=== PATIENT | female | born 1975 | race Caucasian/White ===

== ENCOUNTER 2018-08-21 16:03 | Emergency (ER) | payer BC ==
--- NOTE | 2018-08-21 16:32 | ER Document Report ---
ED Medical Screen (RME) - General Chief Complaint: Arm Problem Stated Complaint: SWELLING LEFT ARM Time Seen by Provider: 08/21/18 16:29 Mode of Arrival: Ambulatory Information source: Patient TRAVEL OUTSIDE OF THE [place] IN LAST 30 DAYS: No - HPI Patient complains to provider of: L arm swelling Onset: Last week - pt diagnosed with shingles last week and started on valtrex. Has noticed increased swelliing in L arm and hand over the past few days. Went to today and was told it could be blood clot - Related Data Allergies/Adverse Reactions: No Known Allergies Allergy (Verified 08/21/18 16:05) Past Medical History - Immunizations Hx Diphtheria, Pertussis, Tetanus Vaccination: No Physical Exam - Vital signs Vitals: Temp Pulse Resp BP Pulse Ox 98.4 F 69 16 134/62 H 98 08/21/18 16:15 08/21/18 16:15 08/21/18 16:15 08/21/18 16:15 08/21/18 16:15 Course - Vital Signs Vital signs: Temp Pulse Resp BP Pulse Ox 98.4 F 69 16 134/62 H 98 08/21/18 16:15 08/21/18 16:15 08/21/18 16:15 08/21/18 16:15 08/21/18 16:15
[2018-08-21 17:13] LABS: ABSOLUTE BASOPHILS # (AUTO) 0.1 10^3/uL (0.0-0.2); ABSOLUTE EOSINOPHILS # (AUTO) 0.5 10^3/uL (0.0-0.6); ABSOLUTE LYMPHOCYTES (AUTO) 2.6 10^3/uL (0.5-4.7); ABSOLUTE MONOCYTES (AUTO) 0.6 10^3/uL (0.1-1.4); ABSOLUTE NEUT (AUTO) 5.3 10^3/uL (1.7-8.2); BASOPHILS % (AUTO) 0.7 % (0-2); LYMPHOCYTES % (AUTO) 28.7 % (13-45); MEAN CORPUSCULAR HEMOGLOBIN 30.3 pg (27.0-33.4); MEAN CORPUSCULAR HGB CONC 34.2 g/dL (32.0-36.0); MEAN CORPUSCULAR VOLUME 89 fl (80-97); MONOCYTES % (AUTO) 6.7 % (3-13); PLATELET COUNT 238 10^3/uL (150-450); RED BLOOD COUNT 4.29 10^6/uL (3.72-5.28); RED CELL DISTRIBUTION WIDTH 13.1 % (11.5-14.0); SEGMENTED NEUTROPHILS % (AUTO) 58.9 % (42-78); TOTAL CELLS COUNTED % (AUTO) 100 %
[2018-08-21 17:20] LABS: ALANINE AMINOTRANSFERASE 15 U/L (9-52); ALBUMIN 4.1 g/dL (3.5-5.0); ALKALINE PHOSPHATASE 78 U/L (38-126); ANION GAP 8 (5-19); ASPARTATE AMINO TRANSFERASE 20 U/L (14-36); BILIRUBIN,DIRECT 0.3 mg/dL (0.0-0.4); BILIRUBIN,TOTAL 0.4 mg/dL (0.2-1.3); BLOOD UREA NITROGEN 15 mg/dL (7-20); CALCIUM 9.6 mg/dL (8.4-10.2); CARBON DIOXIDE 27 mmol/L (22-30); CHLORIDE 106 mmol/L (98-107); GLUCOSE 121 mg/dL (75-110); POTASSIUM 4.3 mmol/L (3.6-5.0); TOTAL PROTEIN 6.9 g/dL (6.3-8.2)
--- NOTE | 2018-08-21 17:53 | ER Document Report ---
ED General - General Chief Complaint: Arm Problem Stated Complaint: SWELLING LEFT ARM Time Seen by Provider: 08/21/18 16:29 Mode of Arrival: Ambulatory Notes: Patient is a 43-year-old female who presents to the emergency department with a chief complaint of left arm swelling. She was diagnosed with shingles 1 week ago, and was put on Valtrex for treatment. She was seen in urgent care, then sent to the emergency department for further agnostic studies. Today she noticed she had a pruritic rash all over her body. She denies any fever, chills , night sweats, or any constitutional symptoms at this time. She is currently on control. No other medical history noted. TRAVEL OUTSIDE OF THE [place] IN LAST 30 DAYS: No - Related Data Allergies/Adverse Reactions: No Known Allergies Allergy (Verified 08/21/18 16:34) Past Medical History - General Information source: Patient - Social History Smoking Status: Never Smoker Chew tobacco use (# tins/day): No Frequency of alcohol use: None Drug Abuse: None Family History: Reviewed & Not Pertinent Patient has suicidal ideation: No Patient has homicidal ideation: No Renal/ Medical History: Denies: Hx Peritoneal Dialysis Past Surgical History: Reports: Hx Cholecystectomy - Immunizations Hx Diphtheria, Pertussis, Tetanus Vaccination: No Physical Exam - Vital signs Vitals: Temp Pulse Resp BP Pulse Ox 98.4 F 69 16 134/62 H 98 08/21/18 16:15 08/21/18 16:15 08/21/18 16:15 08/21/18 16:15 08/21/18 16:15 - Notes Notes: PHYSICAL EXAMINATION: GENERAL: Appears well, healthy, well-nourished, no acute distress. HEAD: Normocephalic, atraumatic. EYES: PERRL, conjunctiva normal, all extraocular movements intact, sclera nonicteric ENT: Moist mucous membranes. NECK: Supple, no noticeable swelling, redness, rash. Normal range of motion. LUNGS: Equal breath sounds bilaterally and clear to auscultation. No wheezes rales or rhonchi. CARDIOVASCULAR: S1-S2, regular rate, regular rhythm. Radial pulses 2+, normal. ABDOMEN: Normoactive bowel sounds. Soft, nontender, no guarding, no rebound tenderness, and no masses palpated. EXTREMITIES: Swelling noted to left upper extremity. Normal strength and range of motion. No cyanosis. NEUROLOGICAL: Moves all extremities upon command. Strength 5/5 in all extremities. PSYCH: Normal mood, normal affect. SKIN: Warm, dry. Mild rash over the body. Dry, popped blisters to left forearm and left upper arm. Normal skin turgor. Course - Re-evaluation Re-evalutation: 08/21/18 18:43 Patient's left upper extremity ultrasound was negative for DVT. I suspect the patient has a super imposed bacterial infection due to her recent diagnosis of shingles. She is having a systemic rash also. I have consulted with Dr. Guido, who saw her earlier and he is in agreement that she will need IV antibiotics inpatient. 08/21/18 19:32 I have spoke with Dr. Trevino, who is on-call for Dr. Kerns. I presented the case to him, and he states that he will not admit her. He wants her on oral antibiotics first, then follow-up if she does not get better. I have discussed what Dr. Trevino said to me with the patient. She will be started on Keflex and clindamycin. Verbal discharge instructions were given to the patient. She verbalized understanding. Her vital signs are stable at discharge. She is able to tolerate p.o. She is nontoxic in appearance. Strict return precautions were given to her. - Vital Signs Vital signs: Temp Pulse Resp BP Pulse Ox 98.1 F 69 18 124/66 99 08/21/18 19:51 08/21/18 19:51 08/21/18 19:51 08/21/18 19:51 08/21/18 19:51 - Laboratory Result Diagrams: 08/21/18 16:56 08/21/18 16:56 Laboratory results interpreted by me: 08/21/18 16:56 Glucose 121 H Discharge - Discharge Clinical Impression: Left arm cellulitis Condition: Stable Disposition: HOME, SELF-CARE Additional Instructions: You are seen in the emergency department for left arm cellulitis. You are being sent home on oral antibiotics. Please take this medication as prescribed. Even if you feel better, please continue to take medications. You may apply an Theodore wrap to your left arm to help with swelling. Released the Theodore wrap every 2 hours. Please continue to take your acyclovir. These follow-up with Dr. Kerns on Thursday. If you see the rash spreading, develop a fever greater than 100.4 F, or have any symptoms that are worrisome to you, please return to the emergency department. Prescriptions: Cephalexin Monohydrate [Keflex 500 mg Capsule] 500 mg PO Q6H 7 Days capsule Clindamycin HCl [Cleocin 150 mg Capsule] 300 mg PO Q6 7 Days #56 capsule Forms: Return to Work Referrals: JEOVANNY KERNS MD [Primary Care Provider] - 08/23/18
[2018-08-21 18:11] LABS: INTERNATIONAL RATION (INR) 0.85; PROTHROMBIN TIME 12.1 SEC (11.4-15.4)
[2018-08-21 18:12] LABS: PARTIAL THROMBOPLASTIN TIME 28.5 SEC (23.5-35.8)
[2018-08-21] MEDS ORDERED: VANCOMYCIN HCL INJ 1000 MG VIAL IV ONE (18:41)
--- NOTE | 2018-08-21 18:41 | RADIOLOGY REPORT (SQ) ---
EXAM DESCRIPTION: VENOUS UNILATERAL UPPER COMPLETED DATE/TIME: 08/21/2018 6:26 pm REASON FOR STUDY: L arm swelling . The patient has active shingles on the left arm and torso. COMPARISON: None. TECHNIQUE: Grayscale and color images acquired of the left arm venous system. Selected spectral imag es acquired with additional compression and augmentation maneuvers. The contralateral internal jugula r vein was also imaged. Images stored on PACS. LIMITATIONS: None. FINDINGS: INTERNAL JUGULAR VEIN: Normal phasicity, compression, augmentation. No visualized echogeni c material on acuña scale. No defects on color images. Comparison opposite side normal. SUBCLAVIAN VEIN: Normal compression, augmentation. No visualized echogenic material on acuña scale. No defects on color images. AXILLARY VEIN: Normal compression, augmentation. No visualized echogenic material on acuña scale. No d efects on color images. BRACHIAL VEIN: Normal compression, augmentation. No visualized echogenic material on acuña scale. No d efects on color images. BASILIC VEIN: Normal compression, augmentation. No visualized echogenic material on acuña scale. No de fects on color images. CEPHALIC VEIN: Normal compression, augmentation. No visualized echogenic material on acuña scale. No d efects on color images. ULNAR AND RADIAL VEINS: No visualized echogenic material on acuña scale. No defects on color imaging. CONTRALATERAL INTERNAL JUGULAR VEIN: Normal phasicity, compression and augmentation. No visualized echogenic material on acuña scale. No de fects on color images. IMPRESSION: NO EVIDENCE FOR DVT OR SVT IN THE LEFT ARM. TECHNICAL DOCUMENTATION: JOB ID: [id number]- All Rights Reserved Reading location - IP/workstation name: [email or web address]
[2018-08-21] MEDS ORDERED: CEFTRIAXONE INJ 1000 MG VIAL IV ONE (18:42)
[2018-08-21 20:00] VITALS: BP 124/66
== END 2018-08-21 20:00 | disposition home or self-care (01) ==
LOC: ER 16:03
DX: L03.114 Cellulitis of left upper limb (principal); M79.89 Other specified soft tissue disorders; R21 Rash and other nonspecific skin eruption; Z90.49 Acquired absence of other specified parts of digestive tract
CPT/HCPCS: 99284; 96365; 36415; 87040; 85025; 85610; 85730; 80053; 93971; J0696